=== PATIENT | male | born 1975 | race Caucasian/White ===

== ENCOUNTER 2019-11-06 09:57 | Emergency (ER) | payer BC ==
[2019-11-06] MEDS ORDERED: Sodium Chloride 0.9% 10 ML Syringe FLUSH PRN ×2 (10:26→10:42)
--- NOTE | 2019-11-06 10:30 | EDM.PDOC ---
ED HPI GENERAL MEDICAL PROBLEM - General Chief Complaint: Neurological Problem Stated Complaint: POSS STROKE Time Seen by Provider: 11/06/19 10:07 Source of Information: Reports: Patient History Limitations: Reports: No Limitations - History of Present Illness INITIAL COMMENTS - FREE TEXT/NARRATIVE: A stroke alert was called for this patient. Mr. Daniels is a very pleasant 44-year-old man with no chronic medical problems, who now presents to the ED stating that he developed vertigo around 9:00 yesterday morning. He states that he feels like the room is spinning, causing him to fall to the left when he ambulates. He states that his symptoms are present even at rest, although they are worse with movement. He has had nausea and one episode of emesis yesterday. He states that he initially had a mild bifrontal headache yesterday morning, which resolved after he took 2 Tylenol. He states that he has had bilateral eye cloudy vision, worse on the left than the right. No prior similar symptoms. Other than Tylenol for his headache, he states that he took a single Benadryl yesterday, which did not improve his symptoms. The patient states that he went to the clinic this morning, but was sent here. Here in the ED, the patient is found to be hemodynamically stable, afebrile, saturating 95% on room air. Other than the aforementioned symptoms, the patient denies recent fever, chills , sore throat, ear pain, nasal or sinus congestion, cough, dyspnea, chest pain, palpitations, constipation, diarrhea, abdominal pain, urinary symptoms, recent weight gain or weight loss, recent bloody bowel movements or black bowel movements, recent joint aches, or rashes. The patient's PCP is Roxana Medrano NP. - Related Data Allergies Allergy/AdvReac Type Severity Reaction Status Date / Time No Known Allergies Allergy Verified 11/06/19 10:13 Home Meds: Home Meds . [No Known Home Meds] 07/11/16 [History] Past Medical History Musculoskeletal History: Reports: Fracture (right shoulder, left wrist, 3 ribs, right ankle x 3, left ankle x 1), Osteoarthritis (right ankle) - Past Surgical History Musculoskeletal Surgical History: Reports: Other (See Below) (Right ankle x 4, left wrist tendons repaired) Social & Family History - Tobacco Use Smoking Status *Q: Never Smoker - Caffeine Use Caffeine Use: Reports: Soda - Alcohol Use Alcohol Use History: Yes Alcohol Use Frequency: Rarely - Recreational Drug Use Recreational Drug Use: No - Living Situation & Occupation Living situation: Reports: , with Spouse, with Family (3 kids) Occupation: Employed (Supervisor [employer]) ED ROS GENERAL - Review of Systems Review Of Systems: Comprehensive ROS is negative, except as noted in HPI. ED EXAM, NEURO - Physical Exam Exam: See Below Exam Limited By: No Limitations General Appearance: Alert, WD/WN, No Apparent Distress Eye Exam: Bilateral Eye: PERRL, Other (Normal lateral EOM, but minimal vertical EOM) Ears: Normal External Exam, Normal Canal, Hearing Grossly Normal, Normal TMs Nose: Normal Inspection, Normal Mucosa, No Blood Throat/Mouth: Normal Inspection, Normal Lips, Normal Teeth, Normal Gums, Normal Oropharynx, Normal Voice, No Airway Compromise Head Exam: Atraumatic, Normocephalic Neck: Normal Inspection, Supple, Non-Tender, Full Range of Motion. No: Lymphadenopathy (L), Lymphadenopathy (R) Respiratory/Chest: No Respiratory Distress, Lungs Clear, Normal Breath Sounds, No Accessory Muscle Use Cardiovascular: Normal Peripheral Pulses, Regular Rate, Rhythm, No Edema, No Gallop, No JVD, No Murmur, No Rub GI/Abdominal: Normal Bowel Sounds, Soft, Non-Tender, No Organomegaly, No Distention, No Abnormal Bruit, No Mass (Male) Exam: Deferred Rectal (Males) Exam: Deferred Neurological: Alert, Normal Dorsiflexion, Normal Plantar Flexion, Oriented x 3, Other (Mild weakness to raising the left eyebrow, compared to the right. No sensory deprivation, anywhere.) Back Exam: Normal Inspection, Full Range of Motion, NT Extremities: Normal Inspection, Normal Range of Motion, No Pedal Edema, Normal Capillary Refill Psychiatric: Normal Affect Skin Exam: Warm, Dry, Intact, Normal Color, No Rash EKG INTERPRETATION EKG Date: 11/06/19 Time: 10:25 Rhythm: NSR Rate (Beats/Min): 63 Adams: Normal P-Wave: Present QRS: Other ST-T: Normal QT: Normal (Transition) Comparison: NA - No Prior EKG Course - Vital Signs Last Recorded V/S: Last Vital Signs Temp 36.2 C 11/06/19 10:08 Pulse 74 11/06/19 10:08 Resp 18 11/06/19 10:08 BP 123/103 H 11/06/19 10:08 Pulse Ox 95 11/06/19 10:08 - Orders/Labs/Meds Orders: Active Orders 24 hr Category Date Time Status Accu Check [Blood Glucose Check, Bedside] [] ONETIME Care 11/06/19 10:21 Active EKG Documentation Completion [RC] STAT Care 11/06/19 10:25 Active Peripheral IV Care [RC] . DIRECTED Care 11/06/19 10:26 Active Sodium Chloride 0.9% [Saline Flush] Med 11/06/19 10:26 Active 10 ml FLUSH ASDIRECTED PRN Sodium Chloride 0.9% [Saline Flush] Med 11/06/19 10:42 Active 10 ml FLUSH ONETIME PRN Peripheral IV Insertion Adult [OM.PC] Routine Oth 11/06/19 10:26 Ordered Medication Orders Sodium Chloride (Saline Flush) 10 ml FLUSH ASDIRECTED PRN PRN Reason: Keep Vein Open Last Admin: 11/06/19 11:30 Dose: 10 ml Sodium Chloride (Saline Flush) 10 ml FLUSH ONETIME PRN PRN Reason: Keep Vein Open Last Admin: 11/06/19 11:21 Dose: 10 ml Labs: Laboratory Tests 11/06/19 11/06/19 11/06/19 Range/Units 10:24 10:24 10:24 WBC 5.53 (4.23-9.07) K/mm3 RBC 5.13 (4.63-6.08) M/mm3 Hgb 15.7 (13.7-17.5) gm/dl Hct 46.2 (40.1-51.0) % MCV 90.1 (79.0-92.2) fl MCH 30.6 (25.7-32.2) pg MCHC 34.0 (32.2-35.5) g/dl RDW Std Deviation 42.6 (35.1-43.9) fL Plt Count 225 (163-337) K/mm3 MPV 9.6 (9.4-12.3) fl Neutrophils % (Manual) 78 H (40-60) % Band Neutrophils % 0 (0-10) % Lymphocytes % (Manual) 19 L (20-40) % Atypical Lymphs % 0 % Monocytes % (Manual) 3 (2-10) % Eosinophils % (Manual) 0 L (0.8-7.0) % Basophils % (Manual) 0 L (0.2-1.2) Platelet Estimate Adequate Plt Morphology Comment Normal RBC Morph Comment Normal PT 10.6 (9.7-12.0) SECONDS INR 0.97 APTT 27 (22-31) SECONDS Sodium 140 (136-145) mEq/L Potassium 4.4 (3.5-5.1) mEq/L Chloride 103 (98-107) mEq/L Carbon Dioxide 26 (21-32) mEq/L Anion Gap 15.4 H (5-15) BUN 15 (7-18) mg/dL Creatinine 1.3 (0.7-1.3) mg/dL Est Cr Clr Drug Dosing 2.53 mL/min Estimated GFR (MDRD) 59 (>60) mL/min BUN/Creatinine Ratio 11.5 L (14-18) Glucose 117 H (74-106) mg/dL POC Glucose (70-105) mg/dL Calcium 9.3 (8.5-10.1) mg/dL Magnesium 2.0 (1.8-2.4) mg/dl Total Bilirubin 0.7 (0.2-1.0) mg/dL AST 19 (15-37) U/L ALT 29 (16-63) U/L Alkaline Phosphatase 72 (46-116) U/L Troponin I < 0.017 (0.00-0.056) ng/mL Total Protein 8.3 H (6.4-8.2) g/dl Albumin 4.1 (3.4-5.0) g/dl Globulin 4.2 gm/dL Albumin/Globulin Ratio 1.0 (1-2) 11/06/19 Range/Units 10:24 WBC (4.23-9.07) K/mm3 RBC (4.63-6.08) M/mm3 Hgb (13.7-17.5) gm/dl Hct (40.1-51.0) % MCV (79.0-92.2) fl MCH (25.7-32.2) pg MCHC (32.2-35.5) g/dl RDW Std Deviation (35.1-43.9) fL Plt Count (163-337) K/mm3 MPV (9.4-12.3) fl Neutrophils % (Manual) (40-60) % Band Neutrophils % (0-10) % Lymphocytes % (Manual) (20-40) % Atypical Lymphs % % Monocytes % (Manual) (2-10) % Eosinophils % (Manual) (0.8-7.0) % Basophils % (Manual) (0.2-1.2) Platelet Estimate Plt Morphology Comment RBC Morph Comment PT (9.7-12.0) SECONDS INR APTT (22-31) SECONDS Sodium (136-145) mEq/L Potassium (3.5-5.1) mEq/L Chloride (98-107) mEq/L Carbon Dioxide (21-32) mEq/L Anion Gap (5-15) BUN (7-18) mg/dL Creatinine (0.7-1.3) mg/dL Est Cr Clr Drug Dosing mL/min Estimated GFR (MDRD) (>60) mL/min BUN/Creatinine Ratio (14-18) Glucose (74-106) mg/dL POC Glucose 117 H (70-105) mg/dL Calcium (8.5-10.1) mg/dL Magnesium (1.8-2.4) mg/dl Total Bilirubin (0.2-1.0) mg/dL AST (15-37) U/L ALT (16-63) U/L Alkaline Phosphatase (46-116) U/L Troponin I (0.00-0.056) ng/mL Total Protein (6.4-8.2) g/dl Albumin (3.4-5.0) g/dl Globulin gm/dL Albumin/Globulin Ratio (1-2) Meds: Medications Generic Name Dose Route Start Last Admin Trade Name Freq PRN Reason Stop Dose Admin Sodium Chloride 10 ml 11/06/19 10:26 11/06/19 11:30 Saline Flush FLUSH 10 ml ASDIRECTED PRN Administration Keep Vein Open Sodium Chloride 10 ml 11/06/19 10:42 11/06/19 11:21 Saline Flush FLUSH 10 ml ONETIME PRN Administration Keep Vein Open Discontinued Medications Generic Name Dose Route Start Last Admin Trade Name Freq PRN Reason Stop Dose Admin Gadobenate Dimeglumine 17 ml 11/06/19 10:42 06/01/20 11:21 Multihance IVPUSH 11/06/19 10:43 17 ml ONETIME ONE Administration - Re-Assessments/Exams Free Text/Narrative Re-Assessment/Exam: 11/06/19 10:18 The patient's history and physical examination are strongly concerning for a brainstem infarct. We can acquire a stat CT scan, however, I have asked the RT to see if we can get a stat MRI instead. 11/06/19 10:19 Notified that we can get an MRI of the brain in about 10 minutes. In the meantime, I have ordered blood work and an ECG. It should be noted, however, that because his symptoms began more than 24 hours ago, he is not a candidate for tPA, however, he may be a candidate for thrombectomy. 11/06/19 10:35 Accu-Chek is 117. 11/06/19 10:48 Portable chest radiograph appears to be grossly normal. The cardiac silhouette is within normal limits. No pulmonary vascular congestion. No pleural effusions. No focal infiltrate. No pneumothorax. Formal read per the Radiologist pending. 11/06/19 11:05 2 view x-rays of the skull, for clearance for MRI, as read by Dr. Evangelista as: 1. Nothing is seen to contraindicate scheduled MRI. 11/06/19 11:34 The patient's CBC is unremarkable. His CMP is remarkable for an anion gap slightly elevated at 15.6, but with a bicarbonate normal at 26. His blood glucose is slightly elevated at 117, with the remainder of his CMP being unremarkable. His magnesium level is within normal limits at 2.0. His troponin is undetectably low. His coags are within normal limits. 11/06/19 11:47 MRI of the brain without and with contrast is read by Dr. Evangelista as: 1. Small 4.7 mm diffusion abnormality within the right side of the brainstem compatible with a small infarct or other relatively acute nonspecific demyelinating event. No abnormal enhancement or other abnormal signal is seen in this area of abnormal diffusion. 2. No additional abnormality is seen on MRI study of the brain. 11/06/19 12:05 Case discussed with Aziza at [facility] at 11:51. Case then discussed with Dr. Duncan, Neurologist at [facility], at 11: 56. He accepted the patient for admission to their facility, however, he would like the patient to undergo an MRA before he gets to the floor, and therefore recommended that the patient go to their ED. Case then discussed with Dr. Webb, Emergency Physician at [facility] at 12:01. He accepted the patient for transfer to their ED. The patient will be transported by ground ambulance. I have pushed the x-ray and MRI images to [facility]. Departure - Departure Time of Disposition: 12:08 Disposition: DC/Tfer to Acute Hospital 02 Condition: Good Clinical Impression: Brainstem infarct, acute - Discharge Information *PRESCRIPTION DRUG MONITORING PROGRAM REVIEWED*: Not Applicable *COPY OF PRESCRIPTION DRUG MONITORING REPORT IN PATIENT SAUL: Not Applicable Referrals: Roxana Medrano NP [Primary Care Provider] - Landry Duncan MD [Ordering Only Provider] - Forms: ED Department Discharge Sepsis Event Note - Evaluation Sepsis Screening Result: No Definite Risk - Focused Exam Vital Signs: Vital Signs Temp Pulse Resp BP Pulse Ox 11/06/19 10:08 36.2 C 74 18 123/103 H 95 Date Exam was Performed: 11/06/19 Time Exam was Performed: 11:59 - My Orders Last 24 Hours: My Active Orders 11/06/19 10:21 Accu Check [Blood Glucose Check, Bedside] [RC] ONETIME 11/06/19 10:25 EKG Documentation Completion [RC] STAT 11/06/19 10:26 Peripheral IV Care [RC] . DIRECTED Sodium Chloride 0.9% [Saline Flush] 10 ml FLUSH ASDIRECTED PRN Peripheral IV Insertion Adult [OM.PC] Routine 11/06/19 10:42 Sodium Chloride 0.9% [Saline Flush] 10 ml FLUSH ONETIME PRN - Assessment/Plan Last 24 Hours: My Active Orders 11/06/19 10:21 Accu Check [Blood Glucose Check, Bedside] [RC] ONETIME 11/06/19 10:25 EKG Documentation Completion [RC] STAT 11/06/19 10:26 Peripheral IV Care [RC] . DIRECTED Sodium Chloride 0.9% [Saline Flush] 10 ml FLUSH ASDIRECTED PRN Peripheral IV Insertion Adult [OM.PC] Routine 11/06/19 10:42 Sodium Chloride 0.9% [Saline Flush] 10 ml FLUSH ONETIME PRN
[2019-11-06] MEDS ORDERED: Gadobenate Dimeglumine 529 MG/ML 20 ML SDV IVPUSH ONE (10:42)
--- NOTE | 2019-11-06 10:52 | CR ---
Chest: Frontal view of the chest was obtained. Comparison: No prior chest imaging is available. Heart size and mediastinum are normal. Lungs are clear with no acute parenchymal change. Bony structures are grossly intact. Impression: 1. Nothing acute is seen on frontal chest x-ray. Diagnostic code #1 This report was dictated in MDT
--- NOTE | 2019-11-06 10:53 | CR ---
Skull: 2 views of the skull were obtained. Study is centered of the orbits. Comparison: No prior skull study is available. Visualized paranasal sinuses are clear. Surrounding bony structures are intact. No radiopaque foreign object is seen. Impression: 1. Nothing is seen to contraindicate scheduled MRI. Diagnostic code #1 This report was dictated in MDT
--- NOTE | 2019-11-06 11:44 | MR ---
MRI brain (without and with intravenous contrast) Technique: T1 sagittal; T2, T1, FLAIR, gradient echo and diffusion axial; T1 FLAIR and gradient echo coronal; postcontrast T1 axial and postcontrast T1 FLAIR coronal. Comparison: No prior intracranial imaging. Findings: Small diffusion abnormality is noted within the right side of the brainstem. This diffusion abnormality measures approximately 4.7 mm in size and is compatible with relatively recent event most likely representing small infarct or other relatively acute demyelinating event. No abnormal signal is seen within the brain parenchyma. No corresponding signal seen on the FLAIR or T2 sequence to the diffusion abnormality within the right brainstem. There is no abnormal enhancement in the area of the brainstem abnormality. No abnormal enhancement within other portions of the brain are seen. Impression: 1. Small 4.7 mm diffusion abnormality within the right side of the brainstem compatible with a small infarct or other relatively acute nonspecific demyelinating event. No abnormal enhancement or other abnormal signal is seen in this area of abnormal diffusion. 2. No additional abnormality is seen on MRI study of the brain. Diagnostic code #5 This report was dictated in MDT
[2019-11-06] MEDS ORDERED: Ondansetron 4 MG/2 ML SDV ONE (12:28)
[2019-11-06] MEDS: Ondansetron 4 MG/2 ML SDV IVPUSH ONE (12:28)
[2019-11-06 12:59] VITALS: BP 119/81; PULSE 72
== END 2019-11-06 12:31 ==
LOC: JD.ED 09:57
DX: I63.9 Cerebral infarction, unspecified (principal)
CPT/HCPCS: 36415; 70250; 70553; 71045; 80053; 82962; 83735; 84484; 85007; 85027; 85610; 85730; 93005; 96374; 99285; A9577; J2405; 93010; 99284